=== PATIENT | male | born 1975 | race Caucasian/White ===

== ENCOUNTER 2022-11-21 17:35 | Emergency (ER) | payer OTHER ==
[~2022-11-21] VITALS: Ht 180.3 cm; Wt 84.7 kg
[2022-11-21 18:16] VITALS: TEMP 98.3
[2022-11-21 18:26] VITALS: BP 121/92; PULSE 72; RESP 16
== END 2022-11-21 19:13 | disposition home or self-care (01) ==
LOC: EMS 18:03
DX: N45.1 Epididymitis (principal); F17.210 Nicotine dependence, cigarettes, uncomplicated; F15.90 Other stimulant use, unspecified, uncomplicated
CPT/HCPCS: 76870; 99284; Z7502